=== PATIENT | male | born 1965 | race Caucasian/White ===

== ENCOUNTER → 2017-09-02 | Outpatient (CLI) | payer BC ==
[~2017-09-02] MED LIST: DVN/160 PO; MULTTAB58 PO
[2017-09-02 13:20] LABS: ESTIMATED AVERAGE GLUCOSE 117 mg/dl; HA1C FLAG Normal (Normal)
[2017-09-02 13:31] LABS: ALT/SGPT 33 U/L (12-78); AST/SGOT 20 U/L (15-37); BLOOD UREA NITROGEN 18 mg/dl (7-18); BUN/CREATININE RATIO 15.7 (10-20); CALCIUM 9.1 mg/dl (8.5-10.1); CARBON DIOXIDE 27 mmol/L (21-32); CHLORIDE 104 mmol/L (98-107); CREATININE 1.17 mg/dl (0.60-1.40); GLUCOSE 100 mg/dl (70-99); SODIUM 135 mmol/L (136-145)
[2017-09-02 13:37] LABS: CHOLESTEROL 237 mg/dl (0-200); HDL CHOLESTEROL 47 mg/dl; LDL CHOLESTEROL CALCULATED 157 mg/dl; TRIGLYCERIDES 164 mg/dl (0-150); VERY LOW DENSITY LIPOPROT CALC 33 mg/dl
== END | disposition home or self-care (01) ==
LOC: C.LABMFLN 07:47
PROVIDERS: ATTEND Family Medicine
DX: I10 Essential (primary) hypertension (principal); I25.10 Atherosclerotic heart disease of native coronary artery without angina pectoris; Z13.1 Encounter for screening for diabetes mellitus; E78.5 Hyperlipidemia, unspecified; Z12.5 Encounter for screening for malignant neoplasm of prostate

== ENCOUNTER → 2017-12-15 | Outpatient (CLI) | payer BC, OTHER ==
--- NOTE | 2017-12-16 06:41 | PAP/PSG TECHNICIAN REPORT ---
[facility] Geologic Technician Polysomnogram Report Study name: None Report date: 12/16/2017 Study date: 12/15/2017 Referring Physician: Pastor Brown MD Name: WANDA LONGORIA Interpreting Physician: Jm Negrete D.O. Date of : 1965 Geologic Technician: Clare Olvera RPS. Sex: Male Age: 52 Study Type: PSG Weight: 212 lbs Height: 52 years, Height 6' 1.5" BMI: 27.59 Medications: BENAZEPRIL 20 MG, CIALIS 5 MG Patient History 52 yr-old male here for a baseline study. He has a history of snoring and witnessed apnea. He denies feeling tired during the day. His [place] scale is 7. The test was started on room air. ETCO2 testing was not utilized during this study. Room 3 Parameters Monitored NPSG: E1-M2, E2-M1, Fp1-M2, Fp2-M1, F3-M2, F4-M2, F4-M1, C3-M2, C4-M2, C4-M1, O1-M2, O2-M2, O2-M1, T3-M2, T4-M1, P3-M2, P4-M1, CHIN1, CHIN2, HR, EKG, Legs, PFLOW, SNOR, FLOW, CFLOW, Tidal Volume, THOR, ABDO, SpO2, PLTH, CPRESS, ETCO2 Wave, ETCO2, pH Sleep Architecture Sleep Stages Time at Lights Off 9:51:26 PM STAGES Time (min.) TST (%) Time at Lights On 5:08:56 AM Wake 62.0 -- Total Recording Time (TRT) 437.50 min. N1 22.5 6 Total Sleep Period (TSP) 392.5 min. N2 256.0 68 Total Sleep Time (TST) 375.5min. N3 30.5 8 Awake Time 62.0 min. REM 66.5 18 Wake after Sleep Onset 25.5 min. Sleep Efficiency (SE) 86 % Sleep Onset Latency (LILIBETH) 36.5 min. Number of Stage 1 Shifts None Awakenings 10 Stage Changes 80 Number of REM periods 7 REM 66.5 18 REM Latency 83.5 min. NREM 309.0 82 Body Position Analysis Supine Right Left Side Prone Vertical Total Sleep Time (min.) 398.3 27.0 0.0 27.00 0.0 0.0 Total Sleep Time (%) 93% 7% 0% 7 0% N/A% Total Sleep Time REM (min.) 60.5 6.0 0.0 None 0.0 0.0 Total Sleep Time NREM (min.) 288.0 21.0 0.0 None 0.0 0.0 Intermittent Wake (min.) 49.8 12.2 0.0 None 0.0 0.0 Total Sleep Period (%) 90% None None None None None Arousals Myoclonus (PLM) * Events Count Index Events Count Index Spontaneous 21 3 Events Awake (PLMW) 92 89.0 Respiratory 19 3.4 Events Asleep w/ Arousal (PLMA) 1 0.2 PLM 1 0 Events Asleep w/o Arousal (PLMS) 14 2.2 Snoring 4 1 Total Asleep 15 2.4 Total 45 7 Total 107 15 Respiratory Analysis * CA OA MA CH H RERA Total Count 0 3 0 0 69 12 72 Index 0.0 0.5 0.0 0 11.0 2 13.4 Mean Duration 0.0 19.7 0.0 0.00 25.5 20.3 24.5 Longest Duration 0.0 28.0 0.0 0.00 0.0 23.8 54.6 Respiratory Event Summary Total Supine ~Supine Right Left Prone REM NREM Apneas Count 3 3 0 0 N/A N/A 2 1 Index 0.5 1 0 0.0 N/A N/A 2 0 Hypopneas (4% Desat) Count 69 65 4 4 N/A N/A 31 38 Index 11.0 11.2 9 8.9 N/A N/A 28.0 7.4 Apneas & All Hypopneas Count 72 68 4 4 N/A N/A 33 39 Index 11.5 12 9 9 N/A N/A 29.8 7.6 Respiratory Events (Individualized Education Plan Aide+All Hyp+RERA) Count 72 80 4 4 N/A N/A 33 39 Index 13.4 14 9 8.9 N/A N/A 29.8 9.9 Respiratory Related Arousal Count 19 80 0 0 N/A N/A 2 19 Index 3.4 4 0 0 N/A N/A 2 4 Snoring Analysis Supine Right Left Prone REM NREM Total Snore duration 45.9 min Snores count 1,807 136 N/A N/A 297 1,646 1,943 Snore mean duration 1.4 Sec Snores index 311 302 N/A N/A 268.0 319.6 310.5 TST with snoring (%) 12.2% Desaturation Event Summary: Minimum %SpO2 Event Count Mean/Min/Max Duration(sec.) Desaturation Index % Time In Bed > 90 76 34.6 / 6.8 / 60.0 11.7 90.0 86 - 90 8 21.6 / 9.0 / 33.0 12.6 8.8 81 - 85 0 N/A 0.0 0.8 76 - 80 0 N/A 0.0 0.4 71 - 75 0 N/A 0.0 0.1 66 - 70 0 N/A 0.0 0.0 61 - 65 0 N/A 0.0 0.0 56 - 60 0 N/A 0.0 0.0 51 - 55 0 N/A 0.0 0.0 < 50 0 N/A 0.0 0.0 Total REM NREM Awake <50% 0.0 min. 0.0 min. 0.0 min. 0.0 min. 51 - 60% 0.0 min. 0.0 min. 0.0 min. 0.0 min. 61 - 70% 0.0 min. 0.0 min. 0.0 min. 0.0 min. 71 - 80% 2.0 min. 2.0 min. 0.0 min. 0.0 min. 81 - 90% 41.6 min. 19.6 min. 20.7 min. 1.3 min. 91 - 100% 390.7 min. 44.9 min. 288.3 min. 57.4 min. Average 93 91 92 94 Minimum SpO2 72 72 81 86 Desaturation Event Index 11.0 27.1 9.1 3.9 # Desat. Events below 89% 27 19 8 N/A Time(%) with Saturation below 89% 3.5 2.9 0.5 0.0 Time(min.) with Saturation below 89% 15.1 12.6 2.3 0.2 Time (mins) REM (mins) NREM (mins) % of TST SpO2 Below 90% 52 23 N29 6.5 SpO2 Below 88% 16 0 0 3 Heart Rate Analysis Min (bpm) Max (bpm) Average (bpm) Awake 53 99 65 NREM 49 90 61 REM 48 90 60 Overall 48 90 61 Supplemental O2 Values Minimum O2 level: None Value Start Time End Time Geologic Technician Comments Mr. Longoria slept in the right and supine positions. No cardiac arrhythmias or PLMs noted. No bruxism noted. Snoring was noted and scored as a 3 on a scale of 1 through 5. (0=no snoring, 5=snoring loud enough to be heard through a closed door or down the [address] way). He did not wake up to use the restroom during the night. Mr. Longoria stated that he slept about the same as usual. The final report will be interpreted and signed by a sleep physician. The completed physician report will then be placed in the patient medical record. Therapy (cm H2O) 0 TIB (min.) 437.5 TST (min.) 375.5 Sleep Onset (min.) 36.5 REM Onset From Sleep (min.) 83.5 Sleep Efficiency % 86 Wakefulness (%) 14 Wakefulness (min.) 62.0 NREM 1 (%) 6 NREM 1 (min.) 22.5 NREM 2 (%) 68 NREM 2 (min.) 256.0 NREM 3 (%) 8 NREM 3 (min.) 30.5 REM (%) 18 REM (min.) 66.5 # Arousals 45 Arousal Index 7 # Snore 1,943 Snore Index 310.5 AHI 11.5 AHI Supine 12 AHI Non-Supine 9 NREM AHI 7.6 REM AHI 29.8 RDI 13.4 # Obstructive Apnea 3 # Central Apnea 0 # Mixed Apnea 0 # Hypopneas 69 RERAs 12 Total Respiratory Events 87 Time Below SpO2 89% (min.) 14.9 Mean NREM SpO2 (%) 92 Mean REM SpO2 (%) 91 Mean Sleep SpO2 (%) 92 Min NREM SpO2 (%) 81 Min REM SpO2 (%) 72 Position Supine (min.) 398.3 Position Non-supine (min.) 27.0 LM Index Sleep 2.4 LM Index NREM 2.3 LM Index REM 2.7 Mean Heart Rate (bpm) 61 Min Heart Rate (bpm) 48
--- NOTE | 2017-12-16 20:38 | POLYSOMNOGRAPH REPORT ---
CLINICAL DATA: The patient is referred by Dr. Pastor Brown for an in-lab polysomnography. The patient has a history of snoring and observed apneas. His [place] Sleepiness Scale score is 7. His BMI is 27.59. SLEEP ARCHITECTURE: The total sleep period was 392.5 minutes. The total sleep time was 375.5 minutes. The sleep efficiency was mildly reduced to 86%. The sleep latency was prolonged to 36.5 minutes. Wake after sleep onset was 25.5 minutes. The REM latency was normal at 83.5 minutes. Sleep consisted of stage N1 6%, stage N2 68%, stage N3 8%, stage REM 18%. AROUSAL DATA: The patient had 45 arousals including 21 spontaneous arousals, 19 respiratory arousals, 1 PLM arousal, and 4 snoring arousals. The arousal index was 7. PLM DATA: The patient had 15 periodic limb movements of sleep for a PLM index of 2.4. There was only 1 arousal associated with limb movements for a PLM arousal index of 0.2. EKG: The cardiac rates ranged from 48-90 beats per minute. The average heart rate was 61 beats per minute. No cardiac arrhythmias were noted. RESPIRATORY DATA: The patient had a total of 72 respiratory events including 3 obstructive apneas and 69 hypopneas. Hypopneas were scored according to the 4% desaturation rule. The longest apnea was 28 seconds. The mean duration of the hypopneas was 25.5 seconds. There were also 12 RERAs. The apnea hypopnea index was 11.5 events per hour. This represents mild obstructive sleep apnea. OXIMETRY DATA: The patient had an average saturation of 93%. The minimum saturation was 72%. There was a total of 15.1 minutes with saturations less than 89%. Most of these occurred at times of respiratory events. 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 No cardiac arrhythmias noted. No bruxism noted. Snoring was noted and scored as a 3 on a scale of 1 through 5. He did not wake up to use the restroom during the night time. The patient stated that he slept about the same as usual. IMPRESSION: Mild obstructive sleep apnea. COMMENTS: The patient did have mild apnea as assessed by the apnea-hypopnea index. However, they were associated with desaturations at times. The patient does have a history of hypertension. Thus, it would seem important that the sleep apnea be treated. Nasal CPAP therapy would be the preferred treatment of choice. RECOMMENDATIONS: 1. It is advised that the patient be given a trial of nasal CPAP. This could be accomplished by referral to the sleep lab for a CPAP titration study. Alternatively, he could be treated with auto CPAP. 2. If the patient refuse nasal CPAP therapy, consideration could be given to a referral for an oral appliance if he would be a candidate. 3. It is suggested that the patient avoid sleeping in the supine position. 4. The patient should be advised of the appropriate principles of sleep hygiene including having a regular sleep-wake schedule as well as allowing approximately 7.5 hours of time for sleep. The history supplied indicates the patient typically allows about 6.5 hours of sleep time.
== END | disposition home or self-care (01) ==
LOC: C.NEUR 21:00
PROVIDERS: ATTEND Family Medicine
DX: G47.33 Obstructive sleep apnea (adult) (pediatric) (principal)

== ENCOUNTER → 2018-01-12 | Outpatient (CLI) | payer OTHER ==
--- NOTE | 2018-01-13 06:10 | PAP/PSG TECHNICIAN REPORT ---
[facility] Computer Systems Consultant Polysomnogram Report Study name: None Report date: 01/13/2018 Study date: 01/12/2018 Referring Physician: Pastor Brown MD Name: WANDA LONGORIA Interpreting Physician: Jm Negrete D.O. Date of : 1965 Computer Systems Consultant: Clare Olvera RPSGT. Sex: Male Age: 52 Stud yType: PSG PAP Weight: 212 lbs Height: 52 years, Height 6' 1.5" BMI: 27.59 Medications: BENAZEPRIL 20 MG, CIALIS 5 MG Patient History 52 yr-old male here for a new CPAP treatment study. He was found to be positive for SIVAN with an AHI of 11.5. His diagnostic study was on 12/15/17. He chose a Brevida nasal pillows mask size standard from [employer]. The test was started on room air and 4 CMH2O. ETCO2 testing was not utilized during this study. Room 1 Parameters Monitored NPSG: E1-M2, E2-M1, Fp1-M2, Fp2-M1, F3-M2, F4-M2, F4-M1, C3-M2, C4-M2, C4-M1, O1-M2, O2-M2, O2-M1, T3-M2, T4-M1, P3-M2, P4-M1, CHIN1, CHIN2, HR, EKG, Legs, PFLOW, SNOR, FLOW, CFLOW, Tidal Volume, THOR, ABDO, SpO2, PLTH, CPRESS, ETCO2 Wave, ETCO2, pH Sleep Architecture Sleep Stages Time at Lights Off 10:36:07 PM STAGES Time (min.) TST (%) Time at Lights On 5:43:37 AM Wake 14.0 -- Total Recording Time (TRT) 427.50 min. N1 15.5 4 Total Sleep Period (TSP) 423.0 min. N2 226.0 55 Total Sleep Time (TST) 413.5min. N3 60.0 15 Awake Time 14.0 min. REM 112.0 27 Wake after Sleep Onset 9.5 min. Sleep Efficiency (SE) 97 % Sleep Onset Latency (LILIBETH) 4.5 min. Number of Stage 1 Shifts None Awakenings 7 Stage Changes 35 Number of REM periods 4 REM 112.0 27 REM Latency 60.5 min. NREM 301.5 73 Body Position Analysis Supine Right Left Side Prone Vertical Total Sleep Time (min.) 427.5 0.0 0.0 0.00 0.0 0.0 Total Sleep Time (%) 100% 0% 0% 0 0% N/A% Total Sleep Time REM (min.) 112.0 0.0 0.0 None 0.0 0.0 Total Sleep Time NREM (min.) 301.5 0.0 0.0 None 0.0 0.0 Intermittent Wake (min.) 14.0 0.0 0.0 None 0.0 0.0 Total Sleep Period (%) 100% None None None None None Arousals Myoclonus (PLM) * Events Count Index Events Count Index Spontaneous 13 2 Events Awake (PLMW) 20 85.7 Respiratory 2 0.1 Events Asleep w/ Arousal (PLMA) 2 0.3 PLM 2 0 Events Asleep w/o Arousal (PLMS) 19 2.8 Snoring 0 0 Total Asleep 21 3.0 Total 17 2 Total 41 6 Respiratory Analysis * CA OA MA CH H RERA Total Count 5 0 0 0 0 0 5 Index 0.7 0.0 0.0 0 0.0 0 0.7 Mean Duration 14.9 0.0 0.0 0.00 0.0 0.0 14.9 Longest Duration 21.8 0.0 0.0 0.00 0.0 0.0 21.8 Respiratory Event Summary Total Supine ~Supine Right Left Prone REM NREM Apneas Count 5 5 N/A N/A N/A N/A 0 5 Index 0.7 1 N/A N/A N/A N/A 0 1 Hypopneas (4% Desat) Count 0 0 N/A N/A N/A N/A 0 0 Index 0.0 0.0 N/A N/A N/A N/A 0.0 0.0 Apneas & All Hypopneas Count 5 5 N/A N/A N/A N/A 0 5 Index 0.7 1 N/A N/A N/A N/A 0.0 1.0 Respiratory Events (Bolt Man+All Hyp+RERA) Count 5 5 N/A N/A N/A N/A 0 5 Index 0.7 1 N/A N/A N/A N/A 0.0 1.0 Respiratory Related Arousal Count 2 5 N/A N/A N/A N/A 0 1 Index 0.1 0 N/A N/A N/A N/A 0 0 Snoring Analysis Supine Right Left Prone REM NREM Total Snore duration 0.9 min Snores count 46 N/A N/A N/A 2 44 46 Snore mean duration 1.1 Sec Snores index 7 N/A N/A N/A 1.1 8.8 6.7 TST with snoring (%) 0.2% Desaturation Event Summary: Minimum %SpO2 Event Count Mean/Min/Max Duration(sec.) Desaturation Index % Time In Bed > 90 5 31.6 / 18.8 / 38.8 0.7 99.2 86 - 90 0 N/A 0.0 0.8 81 - 85 0 N/A 0.0 0.0 76 - 80 0 N/A 0.0 0.0 71 - 75 0 N/A 0.0 0.0 66 - 70 0 N/A 0.0 0.0 61 - 65 0 N/A 0.0 0.0 56 - 60 0 N/A 0.0 0.0 51 - 55 0 N/A 0.0 0.0 < 50 0 N/A 0.0 0.0 Total REM NREM Awake <50% 0.0 min. 0.0 min. 0.0 min. 0.0 min. 51 - 60% 0.0 min. 0.0 min. 0.0 min. 0.0 min. 61 - 70% 0.0 min. 0.0 min. 0.0 min. 0.0 min. 71 - 80% 0.0 min. 0.0 min. 0.0 min. 0.0 min. 81 - 90% 3.6 min. 0.0 min. 3.2 min. 0.3 min. 91 - 100% 423.9 min. 112.0 min. 298.3 min. 13.7 min. Average 95 95 94 96 Minimum SpO2 86 93 86 87 Desaturation Event Index 0.7 0.0 0.8 4.3 # Desat. Events below 89% 4 N/A 4 0 Time(%) with Saturation below 89% 0.2 0.0 0.2 0.0 Time(min.) with Saturation below 89% 0.9 0.0 0.8 0.1 Time (mins) REM (mins) NREM (mins) % of TST SpO2 Below 90% 4 N/A N4 0.2 SpO2 Below 88% 2 0 0 0 Heart Rate Analysis Min (bpm) Max (bpm) Average (bpm) Awake 52 88 61 NREM 48 84 57 REM 49 85 57 Overall 48 85 57 Supplemental O2 Values Minimum O2 level: None Value Start Time End Time Computer Systems Consultant Comments Mr. Longoria slept in the supine position. No cardiac arrhythmias or PLMs noted. No bruxism noted. CPAP was initiated at +4 CMH2O and up-titrated to an optimal level of +5 CMH2O, Cflex 2 which nearly eliminated all respiratory events and snoring. A Brevida nasal pillows mask size standard from [employer] was used during titration. He did not wake up to use the restroom during the night. Mr. Longoria stated that he slept about the same as usual. The final report will be interpreted and signed by a sleep physician. The completed physician report will then be placed in the patient medical record. CPAP REPORT Therapy Detail Time / Page # Comment CPAP 4 cm H2O Nasal Pillow Mask Flex Pressure Relief Humidifier on 10:34:27 PM / pg. 286 CPAP 5 cm H2O Nasal Pillow Mask Flex Pressure Relief Humidifier on 12:25:23 AM / pg. 508 INCREASED FOR SNORING Therapy Event: Therapy (cm H20) 4 5 Total Time at Pressure (min.) 109.3 318.2 TST at Pressure (min.) 103.3 310.2 # Periods 1 1 Sleep Onset (min.) 4.5 0.0 REM Onset (min.) 65.0 44.2 Sleep Efficiency % 94 97 Wakefulness (%) 5.5 2.5 Wakefulness (min.) 6.0 8.0 NREM 1 (%) 3.7 3.6 NREM 1 (min.) 4.0 11.5 NREM 2 (%) 47.8 54.6 NREM 2 (min.) 52.3 173.7 NREM 3 (%) 24.3 10.5 NREM 3 (min.) 26.5 33.5 REM (%) 18.8 28.8 REM (min.) 20.5 91.5 # Arousals 7 10 Arousal Index 4.1 1.9 # Snore 42 4 Snore Index 24.4 0.8 AHI 2.9 0.0 AHI Supine 2.9 0.0 AHI Non-Supine N/A N/A NREM AHI 3.6 0.0 REM AHI 0.0 0.0 RDI 2.9 0.0 # Obstructive 0 0 # Central Ap 5 0 # Mixed 0 0 # Hypopneas 0 0 RERAS 0 0 Total Respiratory Events 5 0 Time Below SpO2 89.00% (min.) 0.8 0.0 Mean NREM SpO2 (%) 94 95 Mean REM SpO2 (%) 95 96 Mean Sleep SpO2 (%) 94 95 Min NREM SpO2 (%) 86 93 Min REM SpO2 (%) 93 94 Position Supine (min.) 103.3 310.2 Position Non-supine (min.) 0.0 0.0 LM Index Sleep 2.9 3.1 LM Index NREM 2.9 1.1 LM Index REM 2.9 7.9 Mean Heart Rate (bpm) 57 57 Min Heart Rate (bpm) 48 49
== END | disposition home or self-care (01) ==
LOC: C.NEUR 20:00
PROVIDERS: ATTEND Family Medicine
DX: G47.33 Obstructive sleep apnea (adult) (pediatric) (principal)